=== PATIENT | male | born 1960 | race Caucasian/White ===

== ENCOUNTER 2021-02-18 15:12 | Inpatient (IN) | payer OTHER ==
[~2021-02-18] VITALS: Ht 185.4 cm; Wt 73.4 kg
[2021-02-18 16:03] LABS: BASOPHIL 0.5 % (0-2); EOSINOPHIL 0 % (0-5); HCT 31.9 % (42.0-52.0); LYMPHOCYTE 5.8 % (15-48); MCH 30.9 pg (25.0-31.0); MCHC 31.3 g/dL (32.0-36.0); MCV 98.5 fL (78.0-100.0); MONOCYTE 10.7 % (0-12); MPV 9.7 fL (6.0-9.5); NEUTROPHIL 81.6 % (41-80); NRBC 0; PLT 315 K/uL (150-400); RBC 3.24 M/uL (4.70-6.00); RDW 15.5 % (11.5-14.0)
[2021-02-18 16:10] LABS: ALBUMIN 1.5 g/dL (3.4-5.0); BILIRUBIN - TOTAL 0.5 mg/dL (0.2-1.0); BUN/CREAT RATIO (CALC) 18.8 RATIO; CREATININE 0.48 mg/dL (0.67-1.17); GLOBULIN (CALCULATION) 4.8 g/dL; POTASSIUM 3.4 mmol/L (3.5-5.1); TOTAL PROTEIN 6.3 g/dL (6.4-8.2)
[2021-02-19] MEDS ORDERED: METHIMAZOLE PO (00:29)
--- NOTE | 2021-02-20 05:36 | NUR ---
ENTERED PATIENTS ROOM FOUND PATIENT SITTING ON THE FLOOR BY THE BATHROOM. PATIENT STATED THAT HE WENT TO THE BATHROOM AND THEN SAT ON THE FLOOR. ASSESSED PATIENT FOR INJURIES AND NONE WERE NOTED.
[2021-02-20 05:45] LABS: BASOPHIL 0.2 % (0-2); EOSINOPHIL 0 % (0-5); HCT 25.9 % (42.0-52.0); HGB 8.3 g/dl (13.2-18.0); MCH 31.1 pg (25.0-31.0); MONOCYTE 9.3 % (0-12); MPV 9.6 fL (6.0-9.5); NEUTROPHIL 76.4 % (41-80); NRBC 0; PLT 251 K/uL (150-400); RBC 2.67 M/uL (4.70-6.00); RDW 15.9 % (11.5-14.0)
[2021-02-20 05:47] LABS: WBC 4.4 K/uL (4.0-10.5)
[2021-02-20 06:14] LABS: BUN/CREAT RATIO (CALC) 23.2 RATIO; CREATININE 0.56 mg/dL (0.67-1.17); POTASSIUM 3.5 mmol/L (3.5-5.1)
--- NOTE | 2021-02-21 16:51 | NUR ---
02/21/21 Please monitor for home 02 needs.
[2021-02-22] MEDS ORDERED: DEXAMETHASONE 2M2 MG PO (10:48)
[2021-02-22] MEDS ORDERED: AZITHROMYCIN250 MG PO (10:48)
[2021-02-22] MEDS ORDERED: ALBUTEROL HFA INH (10:48)
[2021-02-22] MEDS ORDERED: VITAMIN D325 MC1 PO (10:48)
[2021-02-22] MEDS ORDERED: ZINC SULFATE50 MG PO (10:48)
[2021-02-22] MEDS ORDERED: ASCORBIC ACID500 MG PO (10:48)
== END 2021-02-22 17:45 | disposition home or self-care (01) | DRG 177 ==
LOC: FER 15:12 → FTCU 20:55 → FMS 02-21 20:33
PROVIDERS: Hospitalist; Internal Medicine; ADMIT Internal Medicine
PROC: XW033E5 Introduction of Remdesivir Anti-infective into Peripheral Vein, Percutaneous Approach, New Technology Group 5 (ICD-10-PCS; principal; 2021-02-18)
PROC: 8E0ZXY6 Isolation (ICD-10-PCS; 2021-02-18)
PROC: 5A09357 Assistance with Respiratory Ventilation, Less than 24 Consecutive Hours, Continuous Positive Airway Pressure (ICD-10-PCS; 2021-02-19)
PROC: XW0DXM6 Introduction of Baricitinib into Mouth and Pharynx, External Approach, New Technology Group 6 (ICD-10-PCS; 2021-02-20)
DX: U07.1 COVID-19 (principal); J12.82 Pneumonia due to coronavirus disease 2019; J96.01 Acute respiratory failure with hypoxia; J15.9 Unspecified bacterial pneumonia; I21.4 Non-ST elevation (NSTEMI) myocardial infarction; J44.0 Chronic obstructive pulmonary disease with (acute) lower respiratory infection; K56.600 Partial intestinal obstruction, unspecified as to cause; K58.9 Irritable bowel syndrome, unspecified; E05.90 Thyrotoxicosis, unspecified without thyrotoxic crisis or storm; F17.200 Nicotine dependence, unspecified, uncomplicated; Z79.899 Other long term (current) drug therapy; Z99.81 Dependence on supplemental oxygen
CPT/HCPCS: 36415; 36600; 71045; 71275; 80048; 80053; 82803; 83605; 83880; 84484; 85025; 85379; 87040; 93005; 94010; 94640; 94660; 94664; 94667; 94668; 96372; C9113; C9399; J0456; J0696; J1100; J1650; J2060; J2543; J7030; J7050; J8540; Q9967; U0002